=== PATIENT | female | born 1985 | race Caucasian/White ===

== ENCOUNTER 2018-04-19 10:56 | Emergency (ER) | payer SELFPAY | END 2018-04-19 11:20 | disposition home or self-care (01) | LOC: SCSER 10:56 | DX: K13.0 Diseases of lips (principal); F17.200 Nicotine dependence, unspecified, uncomplicated | CPT/HCPCS: 99283 ==

== ENCOUNTER 2018-06-22 12:56 | Day surgery (SDC) | payer SELFPAY ==
[2018-06-22 13:46] LABS: #Basophils 0.1 thou/uL (0.0-0.2); #Eosinphils 0.2 thou/uL (0.0-0.7); #Lymphocytes 3.5 thou/uL (1.20-3.40); #Monocytes 0.8 thou/uL (0.11-0.59); %Eosinophils 1.7 % (0.0-10.0); %Lymphocytes 29.7 % (21.0-51.0); %Monocytes 7.2 % (0.0-10.0); %Neutrophils 60.4 % (42.0-75.0); Hemoglobin 13.5 g/dL (12.0-16.0); Mean Corpuscular HGB CONC 32.3 g/dL (32.0-36.0); Mean Corpuscular Hemoglobin 30.8 pg (27.0-31.0); Mean Corpuscular Volume 95.4 fL (78.0-98.0); Mean Platelet Volume 8.5 fL (7.4-10.4); Platelet Count 242 thou/uL (130-400); Red Blood Cell (RBC) Count 4.37 mill/uL (4.20-5.40); White Blood Cell (WBC) Count 11.6 thou/uL (4.8-10.8)
[2018-06-22 14:08] LABS: ALT (SGPT) 13 U/L (8-55); AST (SGOT) 17 U/L (5-34); Alkaline Phosphatase 57 U/L (40-150); Anion Gap 10 mmol/L (10-20); BUN (Urea Nitrogen) 13 mg/dL (7.0-18.7); Bilirubin, Total Less than 0.2 mg/dL (0.2-1.2); Calc. Creatinine Clearance 0 mL/min (70-130); Calcium 9.1 mg/dL (7.8-10.44); Carbon Dioxide 26 mmol/L (22-29); Chloride 106 mmol/L (98-107); Estimated GFR-MDRD 77; Globulin 2.6 g/dL (2.4-3.5); Glucose 89 mg/dL (70-105); Potassium 4.1 mmol/L (3.5-5.1); Protein, Total 6.6 g/dL (6.0-8.3); Sodium 138 mmol/L (136-145)
[2018-06-22] MEDS ORDERED: Ketorolac Tromethamine 30 MG/ML VIAL ONE ×2 (14:11→21:56)
[2018-06-22] MEDS ORDERED: Dexamethasone 20 MG/5 ML VIAL ONE (14:11)
[2018-06-22] MEDS ORDERED: PROPOFOL 200 MG/20 ML VIAL ONE (14:11)
[2018-06-22] MEDS ORDERED: Ondansetron PF 4 MG/2 ML Vial ONE (14:11)
[2018-06-22] MEDS ORDERED: Lidocaine 1% PF 5 ML VIAL ONE (14:11)
--- NOTE | 2018-06-22 14:20 | RAD ---
LEFT FINGER 3 VIEWS: HISTORY: Ring finger pain and swelling. COMPARISON: None. FINDINGS: There is mild swelling around the proximal interphalangeal joint of what is expected to be the ring f imtiaz. There is a very subtle fracture on the volar aspect of the middle phalanx base, age indetermi brendan. IMPRESSION: Age-indeterminate fracture involving the volar aspect middle phalanx base of the ring finger. POS: [facility]
[2018-06-22 17:41] LABS: Pregnancy Test - Urine (BHCG) Negative (Negative); Pregu Control Background? CLEAR/WHITE (CLR/WHITE); Pregu Control Bar Appear? YES (CONTROL BAR); Specific Gravity 1.022 (1.002-1.036)
[2018-06-22] MEDS ORDERED: Fentanyl 100 MCG/2 ML VIAL ONE (20:10)
[2018-06-22] MEDS ORDERED: Bupivacaine PF 0.5% 30 ML VIAL ONE (20:18)
[2018-06-22] MEDS ORDERED: Sodium Chloride 0.9% 10 ML ONE (20:19)
[2018-06-22] MEDS ORDERED: Bacitracin Zinc Ointment 30 gm TUBE ONE (20:19)
[2018-06-22] MEDS ORDERED: Thrombin 5000 UNITS/5 ML VIAL ONE (20:19)
[2018-06-22] MEDS ORDERED: Midazolam HCl 2 mg/2 ml Vial ONE (20:21)
--- NOTE | 2018-06-23 15:03 | OP ---
DATE OF PROCEDURE: 06/22/2018 PREOPERATIVE DIAGNOSIS: Left ring finger abscess secondary to possible insect bite. POSTOPERATIVE DIAGNOSIS: Left ring finger abscess secondary to possible insect bite. FINDINGS: Abscess cavity almost 2 cm long by 1 cm. PROCEDURES PERFORMED: 1. Incision and drainage of abscess, probably secondary to some type of insect or bug bite, dorsal left ring finger, proximal phalanx. 2. Debridement of the entire cavity with mucopurulent ball, same location. SPECIMENS: Cultures of both the drainage and the cavity itself. DESCRIPTION OF PROCEDURE: After successful general endotracheal anesthesia, the limb was prepped and draped. The tourniquet time would be 8 minutes. We then did a timeout, gave the patient 15 mL of 0.5% metacarpophalangeal block at the level of the ring finger MPJ and then proceeded to perform a zigzag incision of 0.5 cm. Medially, there was marked amount of purulence escaped from the center of the wound where there was a pinprick with yellow tinge of abscess cavity. Once we drained the abscess cavity and took first culture, we did perform debridement with combination of [place] blade, tenotomy scissors, and , lifted the mass up and it was completely excised using excisional technique. We released the tourniquet, the wound was inspected, no further abscess area and after this, we irrigated with 3 L normal saline and Pulsavac pressure with antibiotic Bacitracin inside. Bulky dressing was applied. The patient left the operating room with a pack into the wound, wet-to-dry. Followup instructions, come back in 36 hours to our clinic. This allowed the patient to leave the operating room without evidence of anesthetic operative complication. Job ID: [id number]
== END 2018-06-22 22:57 | disposition home or self-care (01) ==
LOC: ERS 12:56 → SDC/OP 21:04
PROVIDERS: ATTEND Orthopaedic Surgery Hand Surgery
PROC: 0JBK0ZZ Excision of Left Hand Subcutaneous Tissue and Fascia, Open Approach (ICD-10-PCS; principal; 2018-06-22)
DX: L03.012 Cellulitis of left finger (principal); B95.62 Methicillin resistant Staphylococcus aureus infection as the cause of diseases classified elsewhere; F17.200 Nicotine dependence, unspecified, uncomplicated; Z79.899 Other long term (current) drug therapy
CPT/HCPCS: 36415; 80053; 81025; 85025; 85652; 86140; 87070; 87077; 87186; 87205; J1100; J1885; J2001; J2250; J2405; J2704; J3010; J3490; S0020

== ENCOUNTER 2019-01-19 19:20 | Emergency (ER) | payer SELFPAY ==
[2019-01-19] MEDS ORDERED: Ibuprofen 200 MG TAB ONE (19:59)
[2019-01-19 20:10] LABS: #Basophils 0.1 thou/uL (0.0-0.2); #Eosinphils 0.1 thou/uL (0.0-0.7); #Monocytes 0.7 thou/uL (0.11-0.59); #Neutrophils 15.6 thou/uL (1.40-6.50); %Basophils 0.5 % (0.0-1.0); %Eosinophils 0.8 % (0.0-10.0); %Lymphocytes 10.7 % (21.0-51.0); %Monocytes 3.9 % (0.0-10.0); %Neutrophils 84.1 % (42.0-75.0); Hemoglobin 14.7 g/dL (12.0-16.0); Mean Corpuscular Hemoglobin 31.2 pg (27.0-31.0); Mean Corpuscular Volume 94.6 fL (78.0-98.0); Mean Platelet Volume 9.2 fL (7.4-10.4); Platelet Count 260 thou/uL (130-400); RBC Distribution Width 11.7 % (11.5-14.5); Red Blood Cell (RBC) Count 4.71 mill/uL (4.20-5.40); White Blood Cell (WBC) Count 18.5 thou/uL (4.8-10.8)
[2019-01-19 20:31] LABS: ALT (SGPT) 9 U/L (8-55); AST (SGOT) 13 U/L (5-34); Albumin 4.5 g/dL (3.5-5.0); Alkaline Phosphatase 63 U/L (40-150); Anion Gap 11 mmol/L (10-20); BUN (Urea Nitrogen) 16 mg/dL (7.0-18.7); Bilirubin, Total 0.2 mg/dL (0.2-1.2); Calc. Creatinine Clearance 0 mL/min (70-130); Calcium 9.3 mg/dL (7.8-10.44); Carbon Dioxide 27 mmol/L (22-29); Chloride 104 mmol/L (98-107); Estimated GFR-MDRD 64; Globulin 2.9 g/dL (2.4-3.5); Glucose 95 mg/dL (70-105); Potassium 3.7 mmol/L (3.5-5.1); Protein, Total 7.4 g/dL (6.0-8.3); Sodium 138 mmol/L (136-145)
[2019-01-19] MEDS ORDERED: Lorazepam 2 MG/ML VIAL ONE (21:36)
== END 2019-01-19 22:00 | disposition home or self-care (01) ==
LOC: ERS 19:20
DX: T63.301A Toxic effect of unspecified spider venom, accidental (unintentional), initial encounter (principal); L02.416 Cutaneous abscess of left lower limb; F17.200 Nicotine dependence, unspecified, uncomplicated
CPT/HCPCS: 36415; 80053; 83605; 85025; 87040; 96361; 96374; J2060